=== PATIENT | female | born 1965 | race Caucasian/White ===

== ENCOUNTER 2023-12-11 11:56 | Emergency (ER) | payer OTHER, SELFPAY ==
[2023-12-11 12:10] VITALS: BP 124/64; PULSE 74; RESP 16; TEMP 36.8; O2SAT 99
--- NOTE | 2023-12-11 12:52 | ED.URI ---
HPI - URI/Sore Throat General Chief Complaint: Upper Respiratory Infection Stated Complaint: congested/wheezing Time Seen by Provider: 12/11/23 12:53 Source: patient, RN notes reviewed and old records reviewed Mode of arrival: ambulatory Limitations: no limitations History of Present Illness HPI Narrative: 58 year old female who presents to [facility] care with complaints of headache, nasal congestion and drainge, chest congestion with cough with some dyspnea and wheezing noted for the past 4-5 days. Patient reports that she has called off of work for the past 3 days due to her symptoms. Patient reports that she has been using her Albuterol inhaler, taking Mucinex cold and flu, and Excedrin migraine for her symptoms. Patient reports no known fevers, denies any chills or sweats or any body aches. MD elicited complaint: cough, sore throat, rhinorrhea, nasal congestion and other (shortness of breath) Pertinent past history: asthma and other (tobacco use) Onset (ago): day(s) (4-5) Consistency: progressively worsening Severity: moderate Able to tolerate fluids by mouth: Yes Exacerbating factors: exertion Treatments prior to arrival: cold medicine and other (inhaler, Excedrin migraine) Related Data Allergies Allergy/AdvReac Type Severity Reaction Status Date / Time codeine Allergy Severe ASTHMA Verified 10/13/10 14:11 ATTACK acetaminophen AdvReac Severe NAUSEA Verified 10/13/10 11:01 HYDROCODONE BIT AdvReac Severe NAUSEA Uncoded 10/13/10 11:01 Review of Systems Review of Systems: CONSTITUTIONAL: Denies malaise, chills, sweats, or fever. EYES: Denies visual changes, redness, or discharge. ENT: Reports rhinorrhea, congestion, sinus pain,no otalgia and no sore throat. CARDIOVASCULAR: Denies chest pain, palpitations, or edema. RESPIRATORY: Reports cough.? Reports dyspnea. GASTROINTESTINAL: Denies abdominal pain, nausea, vomiting, diarrhea SKIN: Denies rash or itching. MUSCULOSKELETAL: Denies myalgia. NEUROLOGIC: Reports headache. All systems reviewed & are unremarkable except as noted in HPI and below PMFSH Past Medical History Medical History (Updated 12/12/23 @ 12:08 by Luh Flower NP) Asthma Bronchitis Depression Hypothyroidism Surgical History Surgical History (Updated 12/12/23 @ 12:12 by Luh Flower NP) H/O: hysterectomy History of bilateral carpal tunnel release History of tonsillectomy Previous section S/P right rotator cuff repair Family History Family History (Updated 08/06/10 @ 08:36 by DOCTOR UNKNOWN) Other Cerebrovascular accident Diabetes mellitus Family history of arthritis Family history of seizure disorder Hypertension Social History Social History (Updated 12/12/23 @ 12:13 by Luh Flower NP) Smoking packs per day: 1 Smoking cigarettes per day: 20.0 Years smoked: 30 Smoking pack-years: 30.00 Smoking status: Current every day smoker Tobacco type: cigarettes Alcohol intake: current Alcohol use details: social Substance use type: does not use Living arrangements: with family Gender identity (if verbalized by the patient): Female Comments At time of signature, agree with nursing past medical, surgical, social and family history. There is no relevant family history pertinent to the presenting complaint Exam Narrative: GENERAL: Well-appearing, well-nourished, and in no acute distress. HEAD: Normocephalic EYES: PERRLA, conjunctivae clear ENT: Nares clear, turbinates edematous and erythematous, clear discharge, headache,. Mucous membranes moist. TM pearly junior with dull light reflex bilaterally; no tragal tenderness. Oropharynx erythematous without lesions. Tonsils not present and throat without exudate, no drooling, no hoarseness, no trismus, uvula midline.post nasal drainage NECK: Supple. No lymphadenopathy CHEST: Decreased with scattered wheezing, breath sounds equal. positive for wheezing, no rhonchi,
== END 2023-12-11 13:21 | disposition home or self-care (01) ==
PROVIDERS: Emergency Provider Registered Nurse; PCP Family Medicine
DX: J40 Bronchitis, not specified as acute or chronic (principal); Z20.822 Contact with and (suspected) exposure to COVID-19; F17.210 Nicotine dependence, cigarettes, uncomplicated; J45.909 Unspecified asthma, uncomplicated; E03.9 Hypothyroidism, unspecified
CPT/HCPCS: 87426; 87804; 99213; G0463

== ENCOUNTER 2024-09-20 10:04 | Emergency (ER) | payer OTHER, SELFPAY ==
[2024-09-20 10:10] VITALS: BP 132/65; PULSE 71; RESP 16; TEMP 37.3; O2SAT 97
--- NOTE | 2024-09-20 10:40 | ED_ITS ---
HPI - Skin/Abscess/Foreign Bdy General Chief complaint: Skin/Abscess/Foreign Body Stated complaint: Laceration to Right Hand Time Seen by Provider: 09/20/24 10:40 Source: patient Mode of arrival: ambulatory Limitations: no limitations History of Present Illness HPI narrative: 59-year-old female presented for complaint of a laceration to the right little finger sustained just prior to arrival. She states she cut the finger on a glass while doing the dishes. States she is up-to-date on tetanus. Denies decreased range of motion to the digit. Related Data Allergies Allergy/AdvReac Type Severity Reaction Status Date / Time codeine Allergy Severe ASTHMA Verified 10/13/10 14:11 ATTACK acetaminophen AdvReac Severe NAUSEA Verified 10/13/10 11:01 HYDROCODONE BIT AdvReac Severe NAUSEA Uncoded 10/13/10 11:01 Review of Systems Review of Systems: CONSTITUTIONAL: Denies body aches, fever, chills, or sweats. EYES: Denies visual changes, redness, or discharge. ENT: Denies rhinorrhea, congestion CARDIOVASCULAR: Denies chest pain, palpitations, or edema. RESPIRATORY: Denies cough or dyspnea. GASTROINTESTINAL: Denies abdominal pain, nausea, vomiting, or diarrhea. SKIN: per HPI MUSCULOSKELETAL: Denies back pain, joint pain, or myalgia. NEUROLOGIC: Denies headache, numbness, tingling, or weakness. [facility] Past Medical History Medical History (Updated 09/20/24 @ 10:42 by Yahaira Beasley, [employer]) Depression Hypothyroidism Asthma Bronchitis Surgical History Surgical History (Updated 12/12/23 @ 12:12 by Luh Flower NP) S/P right rotator cuff repair History of bilateral carpal tunnel release History of tonsillectomy H/O: hysterectomy Previous section Family History Family History (Updated 08/06/10 @ 08:36 by DOCTOR UNKNOWN) Other Cerebrovascular accident Diabetes mellitus Family history of arthritis Family history of seizure disorder Hypertension Social History Social History (Updated 12/12/23 @ 12:13 by Luh Flower NP) Smoking packs per day: 1 Smoking cigarettes per day: 20.0 Years smoked: 30 Smoking pack-years: 30.00 Smoking status: Current every day smoker Tobacco type: cigarettes Alcohol intake: current Alcohol use details: social Substance use type: does not use Living arrangements: with family Gender identity (if verbalized by the patient): Female Comments At time of signature, I have reviewed and agree with nursing past medical, surgical, social and family history unless otherwise noted. Please see nursing chart for further information. There is no relevant family history pertinent to the presenting complaint Exam Narrative: GENERAL: Well-appearing EYES: conjunctivae clear, and EOMI. ENT: Mucous membranes moist. NECK: Supple. No lymphadenopathy CHEST: Clear to auscultation. HEART: Regular rate and rhythm. SKIN: Warm, dry. Right 5th digit with U-shaped flap laceration to radial aspect of MTP joint extending to the proximal phalanx. Bleeding controlled. CMS intact. NEURO: Alert and oriented x3. Course Course Emergency Course: Patient is aware of diagnosis, understands and agrees to treatment plan. Anticipatory guidance given. Patient agrees to follow-up as directed and is aware of reasons to seek care at the emergency department. Portions of this record may have been created with voice recognition software Level of Care: Express Care Visit Vital Signs Vital signs: Vital Signs Temperature 99.1 F 09/20/24 10:10 Pulse Rate 71 09/20/24 10:10 Respiratory Rate 16 09/20/24 10:10 Blood Pressure 132/65 09/20/24 10:10 Pulse Oximetry 97 09/20/24 10:10 Oxygen Delivery Room Air 09/20/24 10:10 Temperature 99.1 F 09/20/24 10:10 Pulse Rate 71 09/20/24 10:10 Respiratory Rate 16 09/20/24 10:10 Blood Pressure 132/65 09/20/24 10:10 Pulse Oximetry 97 09/20/24 10:10 Oxygen Delivery Room Air 09/20/24 10:10 Reviewed Procedures Laceration right 5th digit: Date: 09/20/24 Size (cm): 1.5 Description: flap (U-shaped) Depth: simple, single layer Local Anesthetic: lidocaine 1% Amount of anesthesia used (mL): 2 Pre-repair: irrigated (cleansed with skintegrity) ====== Skin Level ====== Skin layer closed with: nylon Size (cm): 5-0 Number of sutures: 5 Technique: simple, interrupted ====== Subcutaneous Layer ====== ====== Muscle Layer ====== ====== Tendon Layer ====== Dressing: The procedure and its alternatives were reviewed with patient. Risks were reviewed with patient including infection and damage to nearby structures. Patient provided verbal informed consent. The patient was positioned appropriately. Sterile drapes applied to maintain sterile field. Wound was explored for abnormalities including infection and foreign bodies. Sutures placed with wound edges approximated. Patient tolerated well, no complications. Dressing applied per RN. MDM - Skin/Abscess/Foreign Bdy MDM Narrative Medical decision making narrative: Discussed physical exam findings, tolerated sutures to 5th digit, metal finger splint. Advised supportive measures and signs/symptoms to go to the ER. Pt is appropriate for outpt treatment and f/u. Differential Diagnosis Differential diagnosis: Likely other ( Laceration, abrasion, avulsion) Discharge Plan Discharge Clinical Impression: Finger laceration Patient Disposition: Home, Self-Care Condition: Stable Instructions: Finger Laceration (ED) Additional Instructions: Your sutures need to be removed in 7-10 days. You can return to the clinic or your PCP. Wear the dressing that has been applied for the first 24 hours to allow a scab to start forming. After this, you may remove and wash as normal with soap and water. Do NOT wash with peroxide or alcohol. Take tylenol or ibuprofen at home for pain Wear the splint to avoid bending the finger. Follow up with your PCP Go to the ER with any signs of infection such as redness, swelling, increased pain, or drainage. Patient Language: Finnish Prescriptions: New cephalexin 500 mg capsule 500 mg PO Q8H 5 Days Qty: 15 0RF Follow-up/Referrals: UNKNOWN,DOCTOR [Primary Care Provider] - Time of Disposition: 11:24
== END 2024-09-20 11:30 | disposition home or self-care (01) ==
PROVIDERS: Emergency Provider Nurse Practitioner Family
DX: S61.216A Laceration without foreign body of right little finger without damage to nail, initial encounter (principal); W25.XXXA Contact with sharp glass, initial encounter; F17.210 Nicotine dependence, cigarettes, uncomplicated; E03.9 Hypothyroidism, unspecified; J45.909 Unspecified asthma, uncomplicated
CPT/HCPCS: 12001; 99213; G0463